=== PATIENT | female | born 1950 | race Caucasian/White ===

== ENCOUNTER 2018-09-01 13:44 | Emergency (ER) | payer MEDICARE, OTHER ==
[2018-09-01 14:37] VITALS: BP 166/87
--- NOTE | 2018-09-01 14:47 | UC ---
General HPI - HPI Summary HPI Summary: pt fell 9 days ago while walking dogs and injured her L ribs. she notes some ongoing pain plus felt a popping. reports that she is able to deep breathe and move a little better today. no abdominal pain or sob. - History of Current Complaint Chief Complaint: UCGeneralIllness Stated Complaint: S/P FALL 1 WK-RIGHT SIDE RIB PAIN Time Seen by Provider: 09/01/18 14:33 Hx Obtained From: Patient Onset/Duration: Sudden Onset Timing: Constant Pain Intensity: 5 Associated Signs & Symptoms: Negative: Abdominal Pain, Hemoptysis, SOB, Wheezing - Allergy/Home Medications Allergies/Adverse Reactions: Allergies Allergy/AdvReac Type Severity Reaction Status Date / Time clarithromycin [From Biaxin] Allergy Nausea Verified 09/01/18 14:29 trifluoperazine Allergy Shakes Verified 09/01/18 14:29 [From Stelazine] Home Medications: Home Medications FLUoxetine CAP* [PROzac CAP*] 10 mg PO DAILY 09/01/18 [History Confirmed ] Lisinopril TAB* [Prinivil TAB*] 5 mg PO DAILY 09/01/18 [History Confirmed ] Multivitamins/Minerals TAB* [Theragran/minerals TAB*] 1 tab PO DAILY 09/01/18 [ History Confirmed 09/01/18] Naproxen Sodium [Aleve] 220 mg PO Q6HR PRN 09/01/18 [History Confirmed 09/01/18] traZODone TAB* [Desyrel TAB*] 100 mg PO BEDTIME 09/01/18 [History Confirmed 05/12] PMH/Surg Hx/FS Hx/Imm Hx - Additional Past Medical History Additional PMH: chronic fatigue, fibromyalgia - Surgical History Surgical History: Yes Surgery Procedure, Year, and Place: colonoscopy x2. tonsillectomy. vericose veins - Family History Known Family History: Positive: Non-Contributory - Social History Occupation: Retired Alcohol Use: Occasionally Substance Use Type: None Smoking Status (MU): Never Smoked Tobacco Review of Systems All Other Systems Reviewed And Are Negative: Yes Constitutional: Positive: Fatigue - chronic Musculoskeletal: Positive: Myalgia - chronic, Other: - L chest wall pain Physical Exam Triage Information Reviewed: Yes Appearance: Well-Appearing Vital Signs: Initial Vital Signs Temp 98.6 F 09/01/18 14:31 Pulse 84 09/01/18 14:31 Resp 19 09/01/18 14:31 BP 166/87 09/01/18 14:31 Pulse Ox 98 09/01/18 14:31 Vital Signs Reviewed: Yes Eyes: Positive: Conjunctiva Clear ENT: Positive: Normal ENT inspection Neck: Positive: Supple, Nontender, No Lymphadenopathy Respiratory: Positive: Lungs clear, Normal breath sounds, No respiratory distress, Other: - chest/trunk/breast has no deformity, swelling or discoloration. L anterior-lateral ribs are tender. No crepitation/instability appreciated. Cardiovascular: Positive: RRR, No Murmur Abdomen Description: Positive: Nontender, No Organomegaly, Soft. Negative: Distended, Guarding Bowel Sounds: Positive: Present Musculoskeletal: Positive: ROM Intact Neurological: Positive: Alert Psychological: Positive: Age Appropriate Behavior Skin Exam: Normal Diagnostics - Radiology No standard instances Radiology Interpretation Completed By: Radiologist - pa/rib films=IMPRESSION: Fracture of the left sixth posterior lateral rib. No pneumothorax is noted. Course/Dx - Course Course Of Treatment: pt declined presciption pain medication - Differential Dx - Multi-Symptom Differential Diagnoses: Other - no ptx. L 6th rib fx. - Diagnoses Provider Diagnosis: Rib fracture Discharge - Sign-Out/Discharge Documenting (check all that apply): Patient Departure All imaging exams completed and their final reports reviewed: Yes - Discharge Plan Condition: Stable Disposition: HOME Patient Education Materials: Rib Fracture (ED) Referrals: Akilah Chavis MD [Primary Care Provider] - 7 Days Additional Instructions: FOLLOW UP IF NOT BETTER IN 5 DAYS OR SOONER FOR ANY WORSENING. - Billing Disposition and Condition Condition: STABLE Disposition: Home - Attestation Statements Provider Attestation: Per institutional requirements, I have reviewed the chart, however, I was not consulted specifically or made aware of this patient by the midlevel provider. I did not personally evaluate, interact with , or disposition this patient.
== END 2018-09-01 15:36 | disposition home or self-care (01) ==
LOC: UCCORT 13:44
DX: S22.32XA Fracture of one rib, left side, initial encounter for closed fracture (principal); M79.7 Fibromyalgia; R53.83 Other fatigue; Z88.1 Allergy status to other antibiotic agents; Z88.8 Allergy status to other drugs, medicaments and biological substances; W18.30XA Fall on same level, unspecified, initial encounter; Y93.K1 Activity, walking an animal; Y92.9 Unspecified place or not applicable
CPT/HCPCS: 99211; G0463